=== PATIENT | female | born 1965 | race Caucasian/White ===

== ENCOUNTER → 2016-10-08 | Outpatient (CLI) | payer BC | LOC: RAD 09:43 | DX: Z12.31 Encounter for screening mammogram for malignant neoplasm of breast (principal) ==

== ENCOUNTER → 2016-10-18 | Outpatient (CLI) | payer BC | LOC: RAD 02:44 | DX: N63 Unspecified lump in breast (principal) ==

== ENCOUNTER → 2017-10-19 | Outpatient (CLI) | payer BC | LOC: BC 00:39 | DX: Z12.31 Encounter for screening mammogram for malignant neoplasm of breast (principal) ==

== ENCOUNTER → 2017-10-25 | Outpatient (CLI) | payer BC | LOC: RAD 01:09 | DX: N63.41 Unspecified lump in right breast, subareolar (principal); R92.8 Other abnormal and inconclusive findings on diagnostic imaging of breast ==

== ENCOUNTER → 2018-11-02 | Outpatient (CLI) | payer BC | LOC: RAD 01:16 | DX: Z12.31 Encounter for screening mammogram for malignant neoplasm of breast (principal) ==

== ENCOUNTER → 2018-11-08 | Outpatient (CLI) | payer BC | LOC: ULTRA 01:31 | DX: R92.2 Inconclusive mammogram (principal) ==

== ENCOUNTER 2019-01-04 17:30 | Emergency (ER) | payer BC ==
[~2019-01-04] VITALS: Ht 152.4 cm; Wt 53.5 kg
[2019-01-04] MEDS ORDERED: ERYTHROMYCIN E3.5 G3 OPHTHALMIC (18:39)
[2019-01-04] MEDS ORDERED: PHENERGAN 25 MG25 M1 PO (18:39)
[2019-01-04] MEDS ORDERED: NORCO 5-325 TA1 EAC1 PO (18:39)
[2019-01-04 18:55] VITALS: BP 144/79
== END 2019-01-04 18:56 | disposition home or self-care (01) ==
LOC: ER 17:30
DX: S05.02XA Injury of conjunctiva and corneal abrasion without foreign body, left eye, initial encounter (principal); H11.32 Conjunctival hemorrhage, left eye; Z90.49 Acquired absence of other specified parts of digestive tract; W22.8XXA Striking against or struck by other objects, initial encounter; Y93.89 Activity, other specified; Y92.89 Other specified places as the place of occurrence of the external cause; Y99.9 Unspecified external cause status

== ENCOUNTER → 2020-01-07 | Outpatient (CLI) | payer BC ==
[~2020-01-07] MED LIST: ERYTHROMYCIN E3.5 G3 OPHTHALMIC; NORCO 5-325 TA1 EAC1 PO; PHENERGAN 25 MG25 M1 PO
== END ==
LOC: RAD 12:28
PROVIDERS: ATTEND Internal Medicine
DX: Z12.31 Encounter for screening mammogram for malignant neoplasm of breast (principal)

== ENCOUNTER → 2021-02-20 | Outpatient (CLI) | payer OTHER | LOC: BC 14:12 | PROVIDERS: ATTEND Internal Medicine | DX: Z12.31 Encounter for screening mammogram for malignant neoplasm of breast (principal) ==